=== PATIENT | female | born 1980 ===

== ENCOUNTER 2022-12-15 09:55 | Outpatient (CLI) | payer OTHER | END 2022-12-15 10:13 | disposition home or self-care (01) | LOC: MAMO-SONO 09:55 | PROVIDERS: ATTEND Obstetrics & Gynecology | DX: Z12.31 Encounter for screening mammogram for malignant neoplasm of breast (principal); N60.11 Diffuse cystic mastopathy of right breast; N60.12 Diffuse cystic mastopathy of left breast ==